=== PATIENT | male | born 1970 | race Caucasian/White ===

== ENCOUNTER 2017-09-09 07:56 | Outpatient (CLI) | payer OTHER ==
--- NOTE | 2017-09-09 11:39 | MRI ---
NONCONTRAST MRI CERVICAL SPINE: Date: 09-09-17 History: Cervical radiculopathy. Bilateral arm, shoulder, and neck pain. Comparison: None available. FINDINGS: Visualized base of the brain and cervicomedullary junction demonstrate a normal MRI appearance. Normal signal intensity is demonstrated in the bone marrow. C2-3: There is no disc bulge or disc herniation. Central spinal canal and neural foramina are patent. C3-4: There is no significant disc bulge or disc herniation. Central spinal canal and neural foramina are patent. C4-5: There is mild loss of intervertebral disc height. There is a broad based disc osteophyte comple x. This narrows the ventral subarachnoid space. There is mild right and moderate left sided neural fo raminal narrowing. Uncinate process hypertrophy is present. C5-6: There is loss of intervertebral disc height. There is a broad based disc osteophyte complex. Un cinate process hypertrophy is present. There is mild right and severe left sided neural foraminal garth rowing. There is mild effacement of the ventral subarachnoid space. C6-7: There is loss of intervertebral disc height. There is a broad based osteophyte complex. There i s mild effacement of the ventral subarachnoid space. The right neural foramen is patent but there is moderate left sided neural foraminal narrowing. C7-T1: There is no disc bulge or disc herniation. Central spinal canal and neural foramina are patent . IMPRESSION: 1. Degenerative changes, primarily at the C4-5, C5-6, and C6-7 levels. Greatest degree of neural fora willis narrowing is seen on the left at the C5-6 level. The degree of neural foraminal narrowing appro aches severe in severity. POS: [facility]
== END 2017-09-09 07:57 | disposition home or self-care (01) ==
LOC: MRI 07:56
PROVIDERS: ATTEND Specialist
DX: M47.22 Other spondylosis with radiculopathy, cervical region (principal); M99.81 Other biomechanical lesions of cervical region
CPT/HCPCS: 72141

== ENCOUNTER 2018-06-09 12:19 | Outpatient (CLI) | payer OTHER ==
--- NOTE | 2018-06-09 15:00 | RAD ---
CERVICAL SPINE SERIES WITH FLEXION AND EXTENSION 4 VIEWS: HISTORY: Neck pain. FINDINGS: Vertebral bodies are normal in height. There is mild disk narrowing at C4-5 and more pronounced disk narrowing at C5-6 and C6-7. There is somewhat restricted motion in flexion in the lower cervical sp ine. No soft tissue swelling. IMPRESSION: Arthritic changes of the lower spine. POS: [facility]
== END 2018-06-09 12:20 | disposition home or self-care (01) ==
LOC: BICRAD 12:19
PROVIDERS: ATTEND Neurological Surgery
DX: M50.20 Other cervical disc displacement, unspecified cervical region (principal); M47.812 Spondylosis without myelopathy or radiculopathy, cervical region
CPT/HCPCS: 72050

== ENCOUNTER 2021-04-13 10:47 | Outpatient (CLI) | payer BC | END 2021-04-13 10:48 | disposition home or self-care (01) | LOC: BICRAD 10:47 | PROVIDERS: ATTEND Nurse Practitioner Family | DX: M47.22 Other spondylosis with radiculopathy, cervical region (principal) | CPT/HCPCS: 72050 ==

== ENCOUNTER 2021-11-28 13:17 | Observation (INO) | payer BC ==
[2021-11-28 16:35] VITALS: BMI 22.6
[2021-11-28] MEDS: [UNRECOGNIZED DRUG - OTHER] PO SCH (18:14)
[2021-11-28 18:41] LABS: Anion Gap 15 mmol/L (10-20); BUN (Urea Nitrogen) 14 mg/dL (8.4-25.7); Calc. Creatinine Clearance 89 mL/min (70-130); Calcium 9.8 mg/dL (7.8-10.44); Carbon Dioxide 25 mmol/L (22-29); Chloride 102 mmol/L (98-107); Estimated GFR 99; Glucose 84 mg/dL (70-105); Iron 15 ug/dL (65-175); Iron Binding Capacity, Total 445 mcg/dL (261-462); Iron Binding Capacity, Total 454 mcg/dL (261-462); Potassium 3.6 mmol/L (3.5-5.1); Sodium 138 mmol/L (136-145)
[2021-11-28 18:46] LABS: #Lymphocytes 1.5 thou/uL (1.20-3.40); #Monocytes 0.6 thou/uL (0.11-0.59); #Neutrophils 4.5 thou/uL (1.40-6.50); %Basophils 0.3 % (0.0-1.0); %Eosinophils 0.7 % (0.0-10.0); %Lymphocytes 22.6 % (21.0-51.0); %Monocytes 8.8 % (0.0-10.0); %Neutrophils 67.6 % (42.0-75.0); Anisocytosis MODERATE=16-30 cells (100X) (0-5/hpf); Hemoglobin 7.7 g/dL (14.0-18.0); Hypochromia SLIGHT = 6-15 cells (100X) (0-5/hpf); MDiff Complete? YES; Mean Corpuscular HGB CONC 30.2 g/dL (32.0-36.0); Mean Corpuscular Hemoglobin 21.7 pg (27.0-31.0); Mean Corpuscular Volume 71.9 fL (78.0-98.0); Microcytosis SLIGHT = 6-15 cells (100X) (0-5/hpf); Ovalocytes SLIGHT = 2-5 cells (100X) (0-1/hpf); Platelet Count 360 thou/uL (130-400); Platelet Morphology Comment Appears Adequate; Polychromasia SLIGHT = 2-3 cells (100X) (0-2/hpf); RBC Distribution Width 21.3 % (11.5-14.5); Red Blood Cell (RBC) Count 3.54 mill/uL (4.70-6.10); Stomatocytes SLIGHT = 2-5 cells (100X) (0-1/hpf); White Blood Cell (WBC) Count 6.6 thou/uL (4.8-10.8)
[2021-11-28 19:41] LABS: Iron 52 ug/dL (65-175)
[2021-11-28] MEDS ORDERED: FINASTERIDE 1 MG PO SCH (20:00)
[2021-11-28] MEDS: Gabapentin 300 MG CAP PO SCH (20:15)
[2021-11-28] MEDS: Montelukast Sodium 10 mg Tablet PO SCH (20:15)
[2021-11-28] MEDS ORDERED: ACETAMINOPHEN WITH CODEINE PO SCH (21:00)
[2021-11-29] MEDS: [UNRECOGNIZED DRUG - OTHER] PO SCH (05:22)
[2021-11-29] MEDS ORDERED: Fleet Enema 133 ML BOT FS PRN (07:24)
[2021-11-29] MEDS ORDERED: GoLYTELY 4,000 ml Bottle PO SCH (07:30)
[2021-11-29] MEDS ORDERED: GoLYTELY 4,000 ml Bottle ONE (07:30)
[2021-11-29 07:33] LABS: Anion Gap 19 mmol/L (10-20); BUN (Urea Nitrogen) 12 mg/dL (8.4-25.7); Calc. Creatinine Clearance 85 mL/min (70-130); Calcium 9.7 mg/dL (7.8-10.44); Carbon Dioxide 23 mmol/L (22-29); Chloride 102 mmol/L (98-107); Estimated GFR 95; Glucose 81 mg/dL (70-105); Potassium 3.5 mmol/L (3.5-5.1); Sodium 140 mmol/L (136-145)
[2021-11-29 07:53] LABS: #Eosinphils 0.1 thou/uL (0.0-0.7); #Lymphocytes 1.4 thou/uL (1.20-3.40); #Monocytes 0.5 thou/uL (0.11-0.59); #Neutrophils 2.8 thou/uL (1.40-6.50); %Basophils 0.9 % (0.0-1.0); %Eosinophils 1.8 % (0.0-10.0); %Lymphocytes 29.2 % (21.0-51.0); %Monocytes 11.1 % (0.0-10.0); Hemoglobin 9.2 g/dL (14.0-18.0); Hypochromia SLIGHT = 6-15 cells (100X) (0-5/hpf); MDiff Complete? YES; Mean Corpuscular HGB CONC 29.9 g/dL (32.0-36.0); Mean Corpuscular Hemoglobin 22.3 pg (27.0-31.0); Mean Corpuscular Volume 74.6 fL (78.0-98.0); Mean Platelet Volume 9.6 fL (7.4-10.4); Microcytosis SLIGHT = 6-15 cells (100X) (0-5/hpf); Platelet Count 379 thou/uL (130-400); Platelet Morphology Comment Appears Adequate; Polychromasia SLIGHT = 2-3 cells (100X) (0-2/hpf); RBC Distribution Width 22.1 % (11.5-14.5); Red Blood Cell (RBC) Count 4.12 mill/uL (4.70-6.10); White Blood Cell (WBC) Count 4.9 thou/uL (4.8-10.8)
[2021-11-29] MEDS ORDERED: FINASTERIDE 1 MG PO SCH (09:00)
[2021-11-29] MEDS ORDERED: Fish Oil 1,000 MG CAP PO SCH (09:00)
[2021-11-29] MEDS ORDERED: Ketamine 50 MG/ML (10ML VIAL) ONE (10:31)
[2021-11-29] MEDS ORDERED: Fentanyl 100 MCG/2 ML VIAL ONE (10:32)
[2021-11-29] MEDS ORDERED: Iopamidol-370 76% 500 ML 1 ML ONE ×2 (14:20→14:23)
[2021-11-29] MEDS ORDERED: PROPOFOL 200 MG/20 ML VIAL ONE (17:44)
[2021-11-29] MEDS ORDERED: Lidocaine 1% MPF 2 ML VIAL ONE (17:44)
[2021-11-29 19:25] VITALS: TEMP 97.7
[2021-11-29] MEDS: Montelukast Sodium 10 mg Tablet PO SCH (21:51)
[2021-11-29] MEDS: Gabapentin 300 MG CAP PO SCH (21:51)
[2021-11-29 22:17] VITALS: BP 144/58
== END 2021-11-29 21:55 | disposition home or self-care (01) ==
LOC: T4-B 15:58
PROVIDERS: ADMIT Internal Medicine; ATTEND Internal Medicine
PROC: 0DB98ZX Excision of Duodenum, Via Natural or Artificial Opening Endoscopic, Diagnostic (ICD-10-PCS; principal; 2021-11-29)
PROC: 0DBN8ZX Excision of Sigmoid Colon, Via Natural or Artificial Opening Endoscopic, Diagnostic (ICD-10-PCS; 2021-11-29)
PROC: 3E0H8GC Introduction of Other Therapeutic Substance into Lower GI, Via Natural or Artificial Opening Endoscopic (ICD-10-PCS; 2021-11-29)
DX: D50.9 Iron deficiency anemia, unspecified (principal); C18.7 Malignant neoplasm of sigmoid colon; K64.4 Residual hemorrhoidal skin tags; M54.12 Radiculopathy, cervical region; R91.1 Solitary pulmonary nodule; M19.90 Unspecified osteoarthritis, unspecified site; E78.5 Hyperlipidemia, unspecified; G47.30 Sleep apnea, unspecified; Z79.899 Other long term (current) drug therapy; Z20.822 Contact with and (suspected) exposure to COVID-19
CPT/HCPCS: 36415; 36430; 71260; 74177; 80048; 82378; 83540; 83550; 85025; 86850; 86900; 86901; 88305; G0378; J2704; J3010; P9016; Q9967; U0003; U0005

== ENCOUNTER 2021-12-13 08:27 | Outpatient (CLI) | payer BC | END 2021-12-13 08:28 | disposition home or self-care (01) | LOC: SCSMRI 08:27 | PROVIDERS: ATTEND Internal Medicine Hematology & Oncology | DX: C18.7 Malignant neoplasm of sigmoid colon (principal); D50.8 Other iron deficiency anemias; R93.3 Abnormal findings on diagnostic imaging of other parts of digestive tract | CPT/HCPCS: 72197; 74183 ==

== ENCOUNTER 2022-02-09 13:07 | Outpatient (CLI) | payer BC ==
[2022-02-09 13:45] LABS: #Eosinphils 0.1 10x3/uL (0.0-0.5); #Monocytes 0.6 10x3/uL (0.0-1.1); #Neutrophils 4.4 10x3/uL (1.5-8.4); %Basophils 0.6 % (0.0-2.0); %Eosinophils 0.8 % (0.0-6.0); %Lymphocytes 21.2 % (18.0-47.0); %Monocytes 9.3 % (0.0-10.0); %Neutrophils 67.8 % (40.0-75.0); Hemoglobin 13.1 g/dL (13.5-17.5); Mean Corpuscular HGB CONC 32.8 g/dL (32.0-36.0); Mean Corpuscular Hemoglobin 29.1 pg (27.0-33.0); Mean Corpuscular Volume 88.9 fl (81.2-95.1); Mean Platelet Volume 9.5 fl (7.4-10.4); Platelet Count 243 10x3/uL (150-450); RBC Distribution Width 18.3 % (11.5-14.5); White Blood Cell (WBC) Count 6.4 10x3/uL (3.5-10.5)
[2022-02-09 14:07] LABS: Anion Gap 13 mmol/L (10-20); BUN (Urea Nitrogen) 21 mg/dL (8.4-25.7); Calc. Creatinine Clearance 0 mL/min (70-130); Calcium 9.4 mg/dL (7.8-10.44); Carbon Dioxide 28 mmol/L (22-29); Chloride 105 mmol/L (98-107); Estimated GFR 79; Glucose 74 mg/dL (70-105); Potassium 4.1 mmol/L (3.5-5.1); Sodium 142 mmol/L (136-145)
== END 2022-02-09 13:08 | disposition home or self-care (01) ==
LOC: LABBT 13:07
PROVIDERS: ATTEND Surgery
DX: Z01.812 Encounter for preprocedural laboratory examination (principal); C18.9 Malignant neoplasm of colon, unspecified
CPT/HCPCS: 80048; 85025

== ENCOUNTER 2022-02-12 10:04 | Day surgery (SDC) | payer BC ==
[2022-02-09 13:44] VITALS: BMI 21.9
[2022-02-12] MEDS ORDERED: Bupivacaine/Epinephrine 0.25% 30 ML VIAL ONE (10:32)
[2022-02-12] MEDS ORDERED: Lidocaine 2% PF 5 ML VIAL ONE (10:32)
[2022-02-12] MEDS ORDERED: CEFAZOLIN 2 GM VIAL ONE (11:30)
[2022-02-12] MEDS ORDERED: Sodium Chloride 0.9% 100 ML ONE (11:30)
[2022-02-12] MEDS ORDERED: PROPOFOL 200 MG/20 ML VIAL ONE (11:52)
== END 2022-02-12 13:32 | disposition home or self-care (01) ==
LOC: SDC 10:04
PROVIDERS: ATTEND Surgery
PROC: 02HV33Z Insertion of Infusion Device into Superior Vena Cava, Percutaneous Approach (ICD-10-PCS; principal; 2022-02-12)
PROC: 0JH60WZ Insertion of Totally Implantable Vascular Access Device into Chest Subcutaneous Tissue and Fascia, Open Approach (ICD-10-PCS; principal; 2022-02-12)
DX: C18.7 Malignant neoplasm of sigmoid colon (principal); C78.6 Secondary malignant neoplasm of retroperitoneum and peritoneum; D63.0 Anemia in neoplastic disease; Z79.899 Other long term (current) drug therapy; Z90.49 Acquired absence of other specified parts of digestive tract
CPT/HCPCS: 71045; C1788; J1642; J2001; J2704; J3490

== ENCOUNTER 2022-07-31 07:23 | Outpatient (CLI) | payer BC ==
[2022-07-31] MEDS ORDERED: Iopamidol 370 76% 100 ML VIAL ONE (10:03)
== END 2022-07-31 07:24 | disposition home or self-care (01) ==
LOC: CT 07:23
PROVIDERS: ATTEND Internal Medicine Hematology & Oncology
DX: C18.7 Malignant neoplasm of sigmoid colon (principal); R91.1 Solitary pulmonary nodule
CPT/HCPCS: 71260; 74177; Q9967

== ENCOUNTER 2023-02-04 08:04 | Outpatient (CLI) | payer BC ==
[2023-02-04] MEDS ORDERED: Iopamidol 370 76% 100 ML VIAL ONE (14:37)
== END 2023-02-04 08:05 | disposition home or self-care (01) ==
LOC: BICCT 08:04
PROVIDERS: ATTEND Internal Medicine Hematology & Oncology
DX: C18.7 Malignant neoplasm of sigmoid colon (principal)
CPT/HCPCS: 71260; 74177

== ENCOUNTER 2024-02-10 08:57 | Outpatient (CLI) | payer BC ==
[2024-02-10] MEDS ORDERED: Iopamidol 370 76% 100 ML VIAL ONE (10:38)
== END 2024-02-10 08:58 | disposition home or self-care (01) ==
LOC: BICCT 08:57
PROVIDERS: ATTEND Internal Medicine Hematology & Oncology
DX: C18.7 Malignant neoplasm of sigmoid colon (principal); D50.8 Other iron deficiency anemias
CPT/HCPCS: 71260; 74177

== ENCOUNTER 2025-01-28 07:32 | Outpatient (CLI) | payer BC ==
[2025-01-28] MEDS ORDERED: Iopamidol 370 76% 100 ML VIAL ONE (14:30)
== END 2025-01-28 07:33 | disposition home or self-care (01) ==
LOC: CT 07:32
PROVIDERS: ATTEND Internal Medicine Hematology & Oncology
DX: C18.7 Malignant neoplasm of sigmoid colon (principal); D50.8 Other iron deficiency anemias; J84.10 Pulmonary fibrosis, unspecified; K76.89 Other specified diseases of liver; J98.4 Other disorders of lung; I70.90 Unspecified atherosclerosis; K59.00 Constipation, unspecified; M89.9 Disorder of bone, unspecified; Z95.828 Presence of other vascular implants and grafts; Z98.1 Arthrodesis status; Z98.890 Other specified postprocedural states
CPT/HCPCS: 71260; 74177; Q9967